=== PATIENT | female | born 1935 | race Caucasian/White ===

== ENCOUNTER 2023-02-23 07:54 | Outpatient (CLI) | payer MEDICARE, SELFPAY ==
[2023-02-23 12:02] LABS: Basophils Percent Auto 0.5 % (0.2-1.2); Hematocrit 45.7 % (37.0-47.0); Immature Granulocyte Absolute 0.02 K/mm3 (0.00-0.031); Immature Granulocyte Percent A 0.3 % (0-0.5); Lymphocytes Absolute Auto 2.36 K/mm3 (0.9-3.2); Lymphocytes Percent Auto 31.8 % (18.3-44.2); Mean Corpuscular HGB Conc 32.8 g/dl (32-36); Mean Corpuscular Hemoglobin 28.7 pg (26-34); Mean Corpuscular Volume 87.5 fl (80-100); Mean Platelet Volume 12.4 fl (7.4-10.4); Monocytes Absolute Auto 0.6 K/mm3 (0.1-0.6); Monocytes Percent Auto 8.4 % (2.6-8.5); Neutrophils Absolute Auto 4.4 K/mm3 (1.3-6.7); Platelet Count Result 195 k/mm3 (150-375); Red Blood Count 5.22 M/mm3 (4.2-5.4); Red Cell Distribution Width 13.2 % (11.5-14.5); White Blood Count 7.4 K/mm3 (4.5-10.0)
[2023-02-23 12:41] LABS: Alanine Aminotransferase 19 U/L (6-35); Albumin Level 3.9 g/dL (3.5-5.1); Alkaline Phosphatase 117 U/L (38-126); Anion Gap 4 mmol/L (8-16); Aspartate Amino Transferase 39 U/L (14-36); Bilirubin,Total 0.7 mg/dL (0.2-1.3); Blood Urea Nitrogen 14 mg/dL (7-17); Calcium 9.5 mg/dL (8.4-10.2); Carbon Dioxide 32 mmol/L (22-30); Chloride 102 mmol/L (98-107); Cholesterol 183 mg/dL (0-200); Estimated Glomerular Filt Rate > 60; Glucose 103 mg/dL (65-110); HDL Direct 35 mg/dL; Sodium 138 mmol/L (137-145); Triglycerides 196 mg/dL (<150)
[2023-02-23 12:54] LABS: LDL Cholesterol Direct 96 mg/dL
[2023-02-23 13:00] LABS: Hemoglobin A1C 6.7 % (<5.7)
[2023-02-26 23:40] LABS: Vitamin D 1,25 (OH)2 Total 43 pg/mL (18-72); Vitamin D2 1,25 (OH)2 <8 pg/mL; Vitamin D3 1,25 (OH)2 43 pg/mL
== END 2023-02-23 07:55 | disposition home or self-care (01) ==
PROVIDERS: PCP Family Medicine; Visit Provider Nurse Practitioner Family
DX: E11.9 Type 2 diabetes mellitus without complications (principal); I10 Essential (primary) hypertension; E55.9 Vitamin D deficiency, unspecified
CPT/HCPCS: 36415; 80053; 80061; 82652; 83036; 85025

== ENCOUNTER 2023-10-20 09:37 | Outpatient (CLI) | payer MEDICARE, SELFPAY ==
[2023-10-20 18:23] LABS: Hematocrit 43.7 % (37.0-47.0); Hemoglobin 15.1 g/dL (12.0-15.0); Mean Corpuscular HGB Conc 34.6 g/dl (32-36); Mean Corpuscular Volume 86.9 fl (80-100); Mean Platelet Volume 11.7 fl (7.4-10.4); Platelet Count Result 221 k/mm3 (150-375); Red Blood Count 5.03 M/mm3 (4.2-5.4); White Blood Count 8.1 K/mm3 (4.5-10.0)
[2023-10-20 18:42] LABS: Alanine Aminotransferase 15 U/L (6-35); Albumin Level 3.9 g/dL (3.5-5.1); Alkaline Phosphatase 133 U/L (38-126); Anion Gap 6 mmol/L (4-12); Aspartate Amino Transferase 35 U/L (14-36); Bilirubin,Total 0.7 mg/dL (0.2-1.3); Blood Urea Nitrogen 15 mg/dL (7-17); Calcium 9.2 mg/dL (8.4-10.2); Carbon Dioxide 27 mmol/L (22-30); Chloride 102 mmol/L (98-107); Cholesterol 193 mg/dL (0-200); Estimated Glomerular Filt Rate > 60; Glucose 144 mg/dL (65-110); HDL Direct 37 mg/dL; Hemoglobin A1C 7.7 % (<5.7); Potassium 4.1 mmol/L (3.4-5.0); Sodium 135 mmol/L (137-145); Triglycerides 241 mg/dL (<150)
[2023-10-20 18:55] LABS: LDL Cholesterol Direct 108 mg/dL
[2023-10-24 09:28] LABS: Vitamin D 1,25 (OH)2 Total 42 pg/mL (18-72); Vitamin D2 1,25 (OH)2 <8 pg/mL; Vitamin D3 1,25 (OH)2 42 pg/mL
== END 2023-10-20 09:38 | disposition home or self-care (01) ==
LOC: ANHGOSHLAB 09:45
PROVIDERS: Nurse Practitioner Family; PCP Family Medicine; Visit Provider Nurse Practitioner Family
DX: R68.89 Other general symptoms and signs (principal); E53.8 Deficiency of other specified B group vitamins; I10 Essential (primary) hypertension; R23.2 Flushing; Z00.00 Encounter for general adult medical examination without abnormal findings; E55.9 Vitamin D deficiency, unspecified; E78.5 Hyperlipidemia, unspecified; E11.9 Type 2 diabetes mellitus without complications
CPT/HCPCS: 36415; 80053; 80061; 82607; 82652; 83036; 84443; 85027

== ENCOUNTER 2025-01-15 07:51 | Outpatient (CLI) | payer MEDICARE, SELFPAY ==
--- OUTSIDE RECORDS SUMMARY | 2000-11-06 10:00 | XMS_ITS | Continuity of Care Document ---
Author Organization [facility] Address [address] [place] [address] [address] [place] [address] Phone Care Team Providers Care Video Manager Name Role Phone Bhaskar Steward MD Unavailable Unavailable Advance Directives Directive Yes / No Effective Date File Name No Information Encounters Encounter Description Practice Location Reason(s) For Visit Diagnoses Date Provider Providers Copied on Encounter [facility], [address] [place] [address] [address], [place], [place], [id number], [place] tel:[phone] SEC [facility] [place] No Information Bin Muro. [address] [facility], [address], [place], [address], [place]. tel:[phone] Referring Provider: Branden Conner, [address] [facility] [address], [place], [address]. tel:[phone] Family History Family Member Type Diagnosis Age At Onset No Information Payers Payer name Insurance type Covered democrat ID Authoriza tion(s) [employer] Adv CI [id number] Social History Type Description Quantity Date Captured Comments Sex Female Smoking Status No Information Chief Complaint And Reason For Visit No Information Reason For Referral Reason For Referral No Information History Of Present Illness Encounter Date Complaint History Of Prese nt Illness No Information Functional Status Date Functional Assessmen t No Information Instructions Date Instruction Additional Infor mation No Information Assessments Type Assessment Date No Information Patient Care Teams Name Effective Dates (start - stop) Status Members No Information
[2025-01-15 13:00] LABS: Hematocrit 44.7 % (37.0-47.0); Hemoglobin 14.4 g/dL (12.0-15.0); Immature Granulocyte Percent A 0.3 % (0-0.5); Lymphocytes Absolute Auto 2.47 K/mm3 (0.9-3.2); Mean Corpuscular HGB Conc 32.2 g/dl (32-36); Mean Corpuscular Hemoglobin 28.7 pg (26-34); Mean Corpuscular Volume 89.0 fl (80-100); Nucleated Red Blood Cells Absolute Auto 0.000 K/mm3 (0.0-0.012); Nucleated Red Blood Cells Perc 0.0 % (0.0-0.2); Platelet Count Result 244 k/mm3 (150-375); Red Blood Count 5.02 M/mm3 (4.2-5.4); White Blood Count 7.2 K/mm3 (4.5-10.0)
[2025-01-15 13:12] LABS: Alanine Aminotransferase 16 U/L (6-35); Albumin Level 3.8 g/dL (3.5-5.1); Alkaline Phosphatase 135 U/L (38-126); Anion Gap 7 mmol/L (4-12); Aspartate Amino Transferase 45 U/L (14-36); Bilirubin,Total 0.6 mg/dL (0.2-1.3); Blood Urea Nitrogen 13 mg/dL (7-17); Calcium 9.0 mg/dL (8.4-10.2); Carbon Dioxide 29 mmol/L (22-30); Chloride 101 mmol/L (98-107); Cholesterol 196 mg/dL (0-200); Estimated Glomerular Filt Rate > 60; Glucose 120 mg/dL (65-110); HDL Direct 34 mg/dL; Potassium 4.3 mmol/L (3.4-5.0); Sodium 137 mmol/L (137-145); Total Protein 6.7 g/dL (6.3-8.2); Triglycerides 234 mg/dL (<150)
[2025-01-15 13:50] LABS: Thyroid Stimulating Hormone Reflex 1.680 uIU/mL (0.465-4.68)
[2025-01-15 16:03] LABS: Hemoglobin A1C 7.7 % (<5.7)
[2025-01-15 16:18] LABS: MALB Creatinine Ratio 1713.1 mg/g (0-30)
== END 2025-01-15 07:52 | disposition home or self-care (01) ==
PROVIDERS: PCP Family Medicine; Visit Provider Nurse Practitioner Family
DX: E78.5 Hyperlipidemia, unspecified (principal); I10 Essential (primary) hypertension; E11.9 Type 2 diabetes mellitus without complications; E55.9 Vitamin D deficiency, unspecified
CPT/HCPCS: 36415; 80053; 80061; 82043; 82306; 83036; 84443; 85025

== ENCOUNTER 2025-03-10 13:49 | Outpatient (CLI) | payer MEDICARE, SELFPAY ==
[2025-03-10 18:40] LABS: Hematocrit 44.0 % (37.0-47.0); Hemoglobin 14.9 g/dL (12.0-15.0); Immature Granulocyte Percent A 0.2 % (0-0.5); Lymphocytes Absolute Auto 2.64 K/mm3 (0.9-3.2); Mean Corpuscular HGB Conc 33.9 g/dl (32-36); Mean Corpuscular Hemoglobin 28.9 pg (26-34); Mean Corpuscular Volume 85.4 fl (80-100); Nucleated Red Blood Cells Absolute Auto 0.030 K/mm3 (0.0-0.012); Nucleated Red Blood Cells Perc 0.3 % (0.0-0.2); Platelet Count Result 208 k/mm3 (150-375); Red Blood Count 5.15 M/mm3 (4.2-5.4); White Blood Count 8.6 K/mm3 (4.5-10.0)
[2025-03-10 18:54] LABS: Alanine Aminotransferase 18 U/L (6-35); Albumin Level 3.6 g/dL (3.5-5.1); Alkaline Phosphatase 99 U/L (38-126); Anion Gap 5 mmol/L (4-12); Aspartate Amino Transferase 33 U/L (14-36); Bilirubin,Total 0.5 mg/dL (0.2-1.3); Blood Urea Nitrogen 20 mg/dL (7-17); Calcium 8.8 mg/dL (8.4-10.2); Carbon Dioxide 27 mmol/L (22-30); Chloride 101 mmol/L (98-107); Estimated Glomerular Filt Rate 54; Glucose 223 mg/dL (65-110); Magnesium 2.0 mg/dL (1.6-2.3); Potassium 3.9 mmol/L (3.4-5.0); Sodium 133 mmol/L (137-145); Total Protein 6.1 g/dL (6.3-8.2)
== END 2025-03-10 13:50 | disposition home or self-care (01) ==
LOC: ANHGOSHLAB 13:51
PROVIDERS: PCP Nurse Practitioner Family; Visit Provider Nurse Practitioner Family
DX: R41.0 Disorientation, unspecified (principal); N39.0 Urinary tract infection, site not specified; Z87.440 Personal history of urinary (tract) infections
CPT/HCPCS: 36415; 80053; 83735; 85025; 87086

== ENCOUNTER 2025-03-30 10:25 | Emergency (ER) | payer MEDICARE, SELFPAY ==
--- NOTE | ~2025-03-30 | CT_ITS ---
EXAMINATION: CT cervical spine wo con DATE: 03/30/2025 10:52 INDICATION: Mechanical fall. TECHNIQUE: Computed tomography (CT) of the cervical spine was performed without intravenous contrast. Automated exposure control and iterative reconstruction technique were employed. The dose-length product was 393.75 mGy-cm. COMPARISON: None FINDINGS: There are nodules in the thyroid measuring up to 12 mm, likely not clinically significant. There is mild scarring at the lung apices. There are no pathologically enlarged lymph nodes. There is kyphosis of cervical spine. There is 3 mm anterolisthesis of C3 on C4. There is mild chronic height loss of T3 vertebral body. There is severely decreased disc height from C3-C4 through C6-C7 with interbody fusion at C3-C4 and C4-C5. There is multilevel severe facet joint osteoarthritis. There is ankylosis of the facet joints at C3-C4 and C4-C5. There is mild neural foraminal stenosis at multiple levels on either side. There is mild central canal stenosis at the disc levels from C2-C3 through C6-C7. IMPRESSION: 1. No acute fracture. 2. Severe cervical spondylosis. Reviewed, dictated and finalized at location E. PLACE RELATIONS ADVISER
--- NOTE | ~2025-03-30 | CT_ITS ---
EXAMINATION: CT brain wo con DATE: 03/30/2025 10:51 INDICATION: Fall. TECHNIQUE: Computed tomography (CT) of the head was performed without intravenous contrast. The mA was adjusted according to patient size. Iterative reconstruction technique was employed. The dose-length product was 605.33 mGy-cm. COMPARISON: None FINDINGS: There are scattered areas of low attenuation in the cerebral white matter. There is cystic encephalomalacia in the right frontoparietal and parietal deep white matter. There is no intracranial hemorrhage, acute infarction, or abnormal intracranial mass lesion. The ventricles are normal in size. There are likely changes of ocular lens replacement surgeries. There is mild mucosal thickening in the paranasal sinuses. The mastoid air cells are normal. IMPRESSION: 1. 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 2. Extensive nonspecific cerebral white matter disease, which likely represents chronic small vessel ischemic disease. Reviewed, dictated and finalized at location E. ER AND [employer]CIALS
[2025-03-30 10:27] VITALS: BP 204/71; PULSE 72; RESP 17; TEMP 36.9; O2SAT 96
--- NOTE | 2025-03-30 11:27 | ED.FALL ---
HPI - Fall General Chief Complaint: Fall Stated Complaint: fall Time Seen by Provider: 03/30/25 10:26 History of Present Illness HPI Narrative: Patient usually uses walker, did not use her walker this morning since she just wanted to grab her laundry, however she actually dropped her laundry basket, then tripped over it and fell, hitting her head. No loss consciousness, not on blood thinners, nausea vomiting, denies injuring anything else. Related Data Allergies Allergy/AdvReac Type Severity Reaction Status Date / Time No Known Allergies Allergy Verified 03/10/25 13:06 Review of Systems Review of Systems: All systems reviewed & are unremarkable except as noted in HPI and below PMFSH Past Medical History Medical History Vitamin D deficiency (~11/2023) HTN (hypertension) Diabetes Surgical History Surgical History Total knee replacement status History of right hip replacement Family History Family History Grandparent Diabetes mellitus Social History Social History Smoking status: Never smoker Alcohol intake: never Substance use: never Substance use type: does not use Lack of Transportation: No Lack of Food: Never True Current Housing: I Have Housing Concerned About Future Housing: No Difficulty Paying Gas/Electric Bills: No Difficulty Paying for Meds: No Currently Unemployed: No Education: High School Diploma/GED Difficulty w/ Childcare or Family Care: No Living arrangements: with family Additional living arrangements comments: Son and family Occupation/Education: retired Gender identity (if verbalized by the patient): Female Sexual Orientation (if Verbalized by the Patient): Straight or Heterosexual Agree to blood products: Yes Exam Narrative: EXAMINATION OF ORGAN SYSTEMS/BODY AREAS: Constitutional: Vital signs per nursing GENERAL:No acute distress, non-toxic appearing. HEAD: Contusion to left face EYES: EOMI, conjunctiva normal ENT: 2.5 cm linear shallow laceration left upper eyelid LUNGS: Nonlabored breathing. HEART: Regular rate and rhythm ABD: Soft, nontender to palpation EXT: Normal range of motion, no tenderness to palpation SKIN: Laceration left upper eyelid. No obvious bruising or lacerations to any other extremities. NEURO: Alert. No gross focal sensory or strength deficits. PSYCH: Normal affect Course Vital Signs Vital signs: Vital Signs Temperature 98.5 F 03/30/25 10:27 Pulse Rate 72 03/30/25 10:27 Respiratory Rate 17 03/30/25 10:27 Blood Pressure 204/71 H 03/30/25 10:27 Pulse Oximetry 96 03/30/25 10:27 Oxygen Delivery Room Air 03/30/25 10:27 Temperature 98.5 F 03/30/25 10:27 Pulse Rate 72 03/30/25 10:27 Respiratory Rate 17 03/30/25 10:27 Blood Pressure 204/71 H 03/30/25 10:27 Pulse Oximetry 96 03/30/25 10:27 Oxygen Delivery Room Air 03/30/25 10:27 Procedures Laceration Laceration 1: Date: 03/30/25 Time: 11:37 Site: face Side (If applicable): left Size (cm): 2.5 Description: linear Depth: simple, single layer Pre-repair: wound explored, irrigated, irrigated extensively and deep structures intact ====== Skin Level ====== Skin layer closed with: dermabond ====== Subcutaneous Layer ====== ====== Muscle Layer ====== ====== Tendon Layer ====== MDM MDM Narrative Medical decision making narrative: Patient had a mechanical fall, with head injury, no loss of consciousness, no other symptoms. Also presents with asymptomatic hypertension. No signs or symptoms of end organ dysfunction; no chest pain or shortness of breath, neurological deficits, severe headaches, visual disturbance, oliguria, or symptoms of dissection/AAA). I discussed this with her son at bedside, she does have a known history of hypertension, was recently changed to lisinopril from amlodipine, I did discuss she may need a follow-up with her primary care doctor to adjust her medications for better control Believes Tdap up-to-date. CT head and C-spine negative for acute abnormality. Cut is cleaned here, glued with good approximation. Patient tolerated this well. Return precautions and follow-up instructions provided Differential Diagnosis Differential Diagnosis: Intracranial hemorrhage, fracture, etc. Imaging Data Radiologist's impression: ITS Impressions Head CT 03/30/25 10:53 IMPRESSION: 1. 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 2. Extensive nonspecific cerebral white matter disease, which likely represents chronic small vessel ischemic disease. Cervical Spine CT 03/30/25 11:06 IMPRESSION: 1. No acute fracture. 2. Severe cervical spondylosis. Discharge Plan Discharge Clinical Impression: Fall, Facial laceration Patient Disposition: Home Condition: Stable Instructions: Laceration (ED), Head Injury (ED), Facial Laceration (ED) Additional Instructions: Please follow-up with primary care doctor. Your blood pressure was quite high here and may need better control. You can always return to the ER for any further issues. Patient Language: Surinamese Prescriptions: No Action cholecalciferol (vitamin D3) 125 mcg (5,000 unit) capsule 125 mcg PO DAILY Qty: 90 3RF lisinopril 10 mg tablet 10 mg PO DAILY Qty: 90 3RF (DME) pen needle, diabetic [Ultra-Thin II Ins [place]] 29 gauge x 1/2 needle See Rx Instructions .Route Qty: 100 3RF Rx Instructions: use to inject insulin atenolol 100 mg tablet 100 mg PO DAILY Qty: 100 2RF insulin degludec [Tresiba FlexTouch U-100] 100 unit/mL (3 mL) insulin pen 22 unit subcut DAILY Qty: 15 2RF Follow-up/Referrals: Joslyn Robbins APRN [Primary Care Provider, Family Practice] - 2 Days
[2025-03-30 11:40] VITALS: BP 170/86; PULSE 68; RESP 17; O2SAT 99
== END 2025-03-30 11:42 | disposition home or self-care (01) ==
PROVIDERS: Emergency Provider Emergency Medicine; PCP Nurse Practitioner Family
DX: S01.112A Laceration without foreign body of left eyelid and periocular area, initial encounter (principal); I10 Essential (primary) hypertension; E11.9 Type 2 diabetes mellitus without complications; E55.9 Vitamin D deficiency, unspecified; Z96.641 Presence of right artificial hip joint; Z96.659 Presence of unspecified artificial knee joint; R90.82 White matter disease, unspecified; M47.812 Spondylosis without myelopathy or radiculopathy, cervical region; G93.89 Other specified disorders of brain; Z79.4 Long term (current) use of insulin; Z79.899 Other long term (current) drug therapy; W18.09XA Striking against other object with subsequent fall, initial encounter
CPT/HCPCS: 12011; 70450; 72125; 99284